=== PATIENT | female | born 1980 | race Hispanic/Latino ===

== ENCOUNTER 2016-06-12 15:58 | Emergency (ER) | payer MEDICAID ==
[2016-06-12 16:08] VITALS: BP 141/96
[2016-06-12] MEDS ORDERED: BOOSTRIX IM ONE (17:01)
--- NOTE | 2016-06-12 17:07 | Emergency Department Report ---
HPI - General Chief Complaint: Fall Time Seen by Provider: 06/12/16 16:46 - HPI HPI: 35 year old female with history of bilateral acute retinal necrosis presents today with left sided facial swelling and bruising post fall 4 days ago. Patient states she was at work when she tripped and hit her left cheek on something. Denies head injury or loss of consciousness. Denies pain but states it feels sore. Patient states she had a cut to her face which seems to be healing. Tetanus status unknown. Patient states that her bruising and swelling has improved in the last 4 days. Patient has been applying ice and neosporin to the cut. Denies fever, chills, chest pain, shortness of breath, abdominal pain, nausea, vomiting, dizziness and visual changes. Denies change in jaw movement or facial sensation. ED Past Medical Hx - Past Medical History Additional medical history: "DONIS" - Surgical History Additional Surgical History: EYE SURGERY -IMPLANT RIGHT EYE - Social History Smoking Status: Never Smoker Substance Use Type: None - Medications Home Medications: Home Medications Medication Instructions Recorded Confirmed Last Taken Type Aspirin 81 mg PO QDAY 06/12/16 06/12/16 06/11/16 18:00 History Brimonidine 0.15% [Alphagan P 1 drops OP BID 06/12/16 06/12/16 06/12/16 08:00 History 0.15%] Famciclovir [Famvir] 500 mg PO BID 06/12/16 06/12/16 06/12/16 08:00 History Naproxen [Naprosyn] 500 mg PO BID #30 tablet 06/12/16 Unknown Rx ED Review of Systems ROS: Stated complaint: SWOLLEN FACE FROM FALL Other details as noted in HPI Constitutional: denies: chills, fever, malaise Eyes: denies: eye pain, eye discharge, vision change ENT: denies: ear pain, throat pain, hearing loss, congestion Respiratory: denies: cough, shortness of breath, wheezing Cardiovascular: denies: chest pain, palpitations Endocrine: no symptoms reported Gastrointestinal: denies: abdominal pain, nausea, vomiting Musculoskeletal: denies: back pain Neurological: denies: headache, weakness, numbness Physical Exam - Physical Exam Vital Signs: Vital Signs 06/12/16 16:04 Temperature 98.7 F Pulse Rate 81 Respiratory 17 Rate Blood Pressure 141/96 O2 Sat by Pulse 100 Oximetry Physical Exam: General: Well appearing, well nourished, in no distress. Ambulating without difficulty. Head: Normocephalic, atraumatic, no visible or palpable masses, depressions, or scaring. Face: Swelling and bruising noted of left maxillary region. No tednerness to palpation. 3.5 cm healed laceration noted, No active bleeding or drainage. Eyes: Left pupil round and reactive to light; right pupil round but non- reactive to light (not new). EOM Intact. No conjunctival injection noted. No periorbital swelling noted. Ears: External auditory canal and TM clear bilaterally. Hearing intact. Nose: Normal nasal mucosa. No drainage noted. No tenderness to palpation of maxillary and frontal sinuses. Pharynx: No erythema, swelling or exudates Heart: Regular rate and rhythm, no murmur or gallop Lungs: Clear to auscultation bilaterally Abdomen: No tenderness to palpation. No guarding or rebound tenderness. Neurologic: Alert and oriented, no facial droop, clear speech, EOMI, symmetrical strength and sensation, normal gait, GCS of 15 ED Course Vital Signs 06/12/16 16:04 Temperature 98.7 F Pulse Rate 81 Respiratory 17 Rate Blood Pressure 141/96 O2 Sat by Pulse 100 Oximetry ED Medical Decision Making - Lab Data Vital Signs 06/12/16 16:04 Temperature 98.7 F Pulse Rate 81 Respiratory 17 Rate Blood Pressure 141/96 O2 Sat by Pulse 100 Oximetry - Medical Decision Making 35 year old female presents today with a contusion to her left maxillary region that occured 4 days ago. Patient denies pain at this time. Her neuro exam is unremarkable. Her tetanus status has been updated. Explained to patient the pros and cons of facial imaging. Patient expressed understanding and denies imaging at this time. Recommended patient to follow up with primary care provider and return to the emergency department if symptoms worsen or do not improve. Patient is in no acute distress at this time. She will be discharged home on Naprosyn. Critical care attestation.: If time is entered above; I have spent that time in minutes in the direct care of this critically ill patient, excluding procedure time. ED Disposition Clinical Impression: Facial contusion Qualifiers: Encounter type: initial encounter Qualified Code(s): S00.83XA - Contusion of other part of head, initial encounter Disposition: DISCHARGED TO HOME OR SELFCARE Is pt being admited?: No Does the pt Need Aspirin: No Condition: Stable Instructions: Contusion in Adults (ED) Additional Instructions: Follow up with primary care provider. Return to the Emergency department if symptoms worsen. Prescriptions: Naproxen [Naprosyn] 500 mg PO BID #30 tablet Referrals: PRIMARY CAREMD [Primary Care Provider] - 3-5 Days MICK ROBLES MD [Staff Physician] - 3-5 Days Forms: Work/School Release Form(ED) Time of Disposition: 17:32
== END 2016-06-12 17:54 | disposition home or self-care (01) ==
LOC: ED 15:58
DX: S00.83XA Contusion of other part of head, initial encounter (principal); W01.198A Fall on same level from slipping, tripping and stumbling with subsequent striking against other object, initial encounter; Y93.89 Activity, other specified; Y99.8 Other external cause status; Y92.89 Other specified places as the place of occurrence of the external cause
CPT/HCPCS: 90471; 90715